=== PATIENT | female | born 1960 ===

== ENCOUNTER → 2018-10-19 21:26 | Outpatient (REF) | payer BC, SELFPAY ==
[2018-10-19 23:35] LABS: Free T3, Triiodothyronine Free 4.97 pg/mL (2.77-5.27); Free T4, Direct Thyroxine 1.22 ng/dL (0.78-2.19)
[2018-10-19 23:49] LABS: Thyroid Stimulating Hormone < 0.02 uIU/mL (0.47-4.68)
[2018-10-23 16:22] LABS: Triiodothyronine T3 Reverse 12 ng/dL (8-25)
== END ==
LOC: LAB 21:26
PROVIDERS: Visit Provider Naturopath
DX: E03.9 Hypothyroidism, unspecified (principal)
CPT/HCPCS: 36415; 84439; 84443; 84481; 84482